=== PATIENT | female | born 1970 | race Caucasian/White ===

== ENCOUNTER 2018-05-21 17:18 | Emergency (ER) | payer SELFPAY ==
[~2018-05-21] VITALS: Ht 162.6 cm; Wt 68.5 kg
[~2018-05-21 17:18] MED LIST: ENAL5TAB7 PO
[2018-05-21 17:44] VITALS: BP 166/106
--- NOTE | 2018-05-21 17:51 | NUR ---
BACK TO ER LOBBY WITH ---CONTINUE TO WAIT FOR AVAILABLE ROOM FOR MD MARQUEZ
--- NOTE | 2018-05-21 17:53 | NUR ---
URINE CUP HANDED TO PT FOR SAMPLE
--- NOTE | 2018-05-21 19:08 | NUR ---
PT TO ER BED 10
--- NOTE | 2018-05-21 19:13 | NUR ---
47 Y FEMALE ACCOMPANIED BY C/O ABDOMINAL PAIN , N/V X 2 WKS--- MIGRAINE TODAY. PAIN 10/. LAST BM YESTERDAY AFTERNOON, WITH STRAINING. ABDOMEN IS SOFT AND ROUND. BOWEL SOUNDS ACTIVE IN ALL 4 QUADRANTS. --SEEN AND DC TODAY [facility] , CT SCAN COMPLETED DX CONSTIPATION, ANEMIA RX IRON , MIRALAX----HAVE NOT YET FILLED RX. PT STATES THE PAIN HAS WORSENED. VSS AT THIS TIME. AA0X4. BED IS DOWN, LOCKED, BED RAIL X 1, ERMD NOTIFIED. HX---HTN, CONSTIPATION, MIGRAINE RX---LISINOPRIL 10MG
--- NOTE | 2018-05-21 19:31 | NUR ---
VSS AT THIS TIME. AA0X4. PT SITTING IN BED
[2018-05-21] MEDS ORDERED: SODIUM PHOSPHATE 118 ML ENEM RC ONE (20:10)
[2018-05-21] MEDS ORDERED: KETOROLAC 30 MG/ML VIAL IVP ONE (20:10)
[2018-05-21] MEDS ORDERED: ONDANSETRON 4 MG/2 ML VIAL IVP ONE (20:10)
[2018-05-21] MEDS ORDERED: LACTULOSE 20 GM/30 ML UDC PO ONE (21:05)
[2018-05-21 21:15] VITALS: BP 168/88
--- NOTE | 2018-05-21 21:15 | NUR ---
Patient discharged with v/s stable. Written and verbal after care instructions given and explained. Patient verbalized understanding. Ambulatory with steady gait. All questions addressed prior to discharge. Advised to follow up with PMD.
== END 2018-05-21 21:15 | disposition home or self-care (01) ==
LOC: MED 17:18
DX: K59.00 Constipation, unspecified (principal); I10 Essential (primary) hypertension; G43.909 Migraine, unspecified, not intractable, without status migrainosus; Z79.899 Other long term (current) drug therapy
CPT/HCPCS: 81002; 81025; 96374; 96375; 99283; J1885; J2405

== ENCOUNTER 2018-10-22 18:23 | Emergency (ER) | payer OTHER ==
[~2018-10-22] VITALS: Ht 162.6 cm; Wt 68.0 kg
--- NOTE | 2018-10-22 18:25 | NUR ---
PATIENT BIBA AND TAKEN TO ER BED 4
[2018-10-22 18:30] VITALS: BP 159/80
--- NOTE | 2018-10-22 19:10 | NUR ---
PT WENT TO RESTROOM. PROVIDED THE URINE CUP FOR COLLECTING THE SAMPLE.
[2018-10-22] MEDS ORDERED: ALBUTEROL SULFATE/IPRATROPIU 3 ML SOL IH ONE (19:30)
[2018-10-22] MEDS ORDERED: methylPREDNISolone SS 125 MG/2 ML VIAL IM ONE (19:30)
--- NOTE | 2018-10-22 19:57 | NUR ---
PT BIBA WITH C/O SOB SINCE LAST TWO DAYS. HAS DIFFICULTY IN SWALLOWING AND STATES TO HAVE SORE THROAT. PAIN 8/10 AT THROAT. DENIES N, V, D. HAD FEVER IN AM, TOOK TYELENOL. O2 SAT 100% ON RA. SLIGHT TENDERNESS TO LYMPHNODES AT THE BOTH SIDE OF THE THROAT. NO REDNES OR SWELLING SEEN AT INNER THROAT REGION. PT STATES DIFFICULTY WHILE SWALLOWING. WILL CONTINUE TO MONITOR PT. HX--HTN MEDS-- ENALAPRIL
[2018-10-22 20:13] LABS: BASOPHILS # (AUTO) 0.1 K/uL (0.00-0.22); BASOPHILS % (AUTO) 0.5 % (0.0-2.0); EOSINOPHILS # (AUTO) 0.3 K/uL (0-0.4); EOSINOPHILS % (AUTO) 2.8 % (0.0-4.0); HEMATOCRIT 29.6 % (36-48); HEMOGLOBIN 8.9 g/dL (12.0-16.0); LYMPHOCYTES # (AUTO) 1.6 K/uL (2.5-16.5); LYMPHOCYTES % (AUTO) 17.4 % (20.5-51.1); MEAN CORPUSCULAR HEMOGLOBIN 19 pg (27-31); MEAN CORPUSCULAR HGB CONC 30 g/dL (33-37); MEAN CORPUSCULAR VOLUME 62.1 fL (80-94); MONOCYTES # (AUTO) 0.9 K/uL (0.8-1.0); MONOCYTES % (AUTO) 9.4 % (1.7-9.3); NEUTROPHILS # (AUTO) 6.6 K/uL (1.8-7.7); NEUTROPHILS % (AUTO) 69.9 % (42.2-75.2); PLATELET COUNT (AUTO) 303 K/uL (140-450); RED BLOOD CELL COUNT(AUTO) 4.77 MIL/uL (4.20-5.40); RED CELL DISTRIBUTION WIDTH 20.2 % (11.6-13.7); WHITE BLOOD COUNT (AUTO) 9.4 K/uL (4.8-10.8)
[2018-10-22 20:28] LABS: ANION GAP 10.4 (8-16); CREATININE 0.5 mg/dL (0.6-1.3); POTASSIUM 3.4 mmol/L (3.5-5.1)
[2018-10-22 20:36] LABS: ALBUMIN 3.8 g/dL (3.4-5.0); TOTAL BILIRUBIN 0.2 mg/dL (0.0-1.0)
[2018-10-22] MEDS ORDERED: AZITHROMYCIN 250 MG TAB PO ONE (20:50)
[2018-10-22 21:09] VITALS: BP 150/89
--- NOTE | 2018-10-22 21:10 | NUR ---
Patient discharged with v/s stable. Written and verbal after care instructions given and explained. Patient alert, oriented and verbalized understanding of instructions. Ambulatory with steady gait. All questions addressed prior to discharge. ID band removed. Patient advised to follow up with PMD. Rx of PREDNISONE 20 MG, AZITHROMYCIN 250 MG, TESSALON PERLES given. Patient educated on indication of medication including possible reaction and side effects. Opportunity to ask questions provided and answered.
== END 2018-10-22 21:10 | disposition other institution (70) ==
LOC: MED 18:23
DX: J02.8 Acute pharyngitis due to other specified organisms (principal); B97.89 Other viral agents as the cause of diseases classified elsewhere; R06.02 Shortness of breath; R59.0 Localized enlarged lymph nodes; I10 Essential (primary) hypertension; Z79.899 Other long term (current) drug therapy; Z88.0 Allergy status to penicillin
CPT/HCPCS: 36415; 71045; 80053; 85025; 87081; 94640; 96372; 99284; J2930; J7620; Q0092

== ENCOUNTER 2021-08-24 23:11 | Emergency (ER) | payer SELFPAY ==
[~2021-08-24] VITALS: Ht 157.5 cm; Wt 73.5 kg
[~2021-08-24 23:11] MED LIST changes: -ENAL5TAB7 PO; +[UNRECOGNIZED DRUG - CODE] PO
[2021-08-24 23:42] VITALS: BP 203/113
--- NOTE | 2021-08-25 01:01 | NUR ---
Patient ambulated to bed 2.
[2021-08-25] MEDS ORDERED: diazePAM 5 MG TAB PO ONE (01:10)
[2021-08-25] MEDS ORDERED: KETOROLAC 30 MG/ML VIAL IM ONE (01:10)
--- NOTE | 2021-08-25 01:21 | NUR ---
XRAY AT BEDSIDE
--- NOTE | 2021-08-25 01:58 | NUR ---
50 Y/O FEMALE BIBS FROM HOME, C/O left shoulder and arm pain x 2 weeks. Patient reported, had left shoulder and left arm pain for 2 weeks, after pulled fridge. NO DEFORMITIES OR OBVIOUS TRAUMA. CMS INTACT. LIMITED ROM DUE TO PAIN. PMHx: HTN ALL: PCN
[2021-08-25] MEDS ORDERED: CYCL-711 PO (02:49)
[2021-08-25] MEDS ORDERED: NAPR-54 PO (02:49)
[2021-08-25 03:15] VITALS: BP 160/100
--- NOTE | 2021-08-25 03:16 | NUR ---
Patient discharged with v/s stable. Written and verbal after care instructions given and explained. Patient alert, oriented and verbalized understanding of instructions. Ambulatory with steady gait. All questions addressed prior to discharge. ID band removed. Patient advised to follow up with PMD. Rx of FLEXERIL AND NAPROSYN given. Patient educated on indication of medication including possible reaction and side effects. Opportunity to ask questions provided and answered. VSS, A/OX4, AMBULATORY, UNLABORED BREATHING, AND CALM DEMEANOR.
[2021-08-25] MEDS ORDERED: TRAM50TA3 PO (21:23)
== END 2021-08-25 03:16 | disposition home or self-care (01) ==
LOC: MED 23:11
DX: M25.512 Pain in left shoulder (principal); M75.32 Calcific tendinitis of left shoulder; I10 Essential (primary) hypertension; Z79.899 Other long term (current) drug therapy; Z88.0 Allergy status to penicillin; Z90.49 Acquired absence of other specified parts of digestive tract
CPT/HCPCS: 73030; 96372; 99283; J1885; Q0092

== ENCOUNTER 2021-08-25 17:38 | Emergency (ER) | payer SELFPAY ==
[~2021-08-25] VITALS: Ht 156.2 cm; Wt 74.1 kg
[~2021-08-25 17:38] MED LIST changes: +CYCL-711 PO; +NAPR-54 PO
[2021-08-25 18:13] VITALS: BP 223/131
[2021-08-25] MEDS ORDERED: CLONIDINE HYDROCHLORIDE 0.1 MG TAB PO ONE (19:00)
[2021-08-25] MEDS ORDERED: MORPHINE SULFATE 4 MG/ML SYR IM ONE (19:00)
[2021-08-25 19:48] LABS: HEMATOCRIT 43.2 % (36-48); HEMOGLOBIN 14.5 g/dL (12.0-16.0); MEAN CORPUSCULAR HEMOGLOBIN 29 pg (27-31); MEAN CORPUSCULAR VOLUME 84.8 fL (80-94); RED BLOOD CELL COUNT(AUTO) 5.09 MIL/uL (4.20-5.40); WHITE BLOOD COUNT (AUTO) 8.8 K/uL (4.8-10.8)
[2021-08-25 19:49] LABS: BASOPHILS % (AUTO) 0.7 % (0.0-2.0); EOSINOPHILS % (AUTO) 1.5 % (0.0-4.0); LYMPHOCYTES % (AUTO) 28.7 % (20.5-51.1); MEAN CORPUSCULAR HGB CONC 34 g/dL (33-37); MONOCYTES % (AUTO) 9.5 % (1.7-9.3); NEUTROPHILS % (AUTO) 59.6 % (42.2-75.2); PLATELET COUNT (AUTO) 201 K/uL (140-450); RED CELL DISTRIBUTION WIDTH 14.7 % (11.6-13.7)
[2021-08-25 19:50] LABS: BASOPHILS # (AUTO) 0.1 K/uL (0.00-0.22); EOSINOPHILS # (AUTO) 0.1 K/uL (0-0.4); LYMPHOCYTES # (AUTO) 2.5 K/uL (2.5-16.5); MONOCYTES # (AUTO) 0.8 K/uL (0.8-1.0); NEUTROPHILS # (AUTO) 5.3 K/uL (1.8-7.7)
[2021-08-25 20:07] LABS: CHLORIDE 103 mmol/L (98-107); POTASSIUM 3.8 mmol/L (3.5-5.1); SODIUM SERUM 141 mmol/L (136-145)
[2021-08-25 20:08] LABS: ANION GAP 13.6 (8-16); CARBON DIOXIDE 28.2 mmol/L (21-32); CREATININE 0.5 mg/dL (0.6-1.3); GFR ARICAN-AMERICAN 167 mL/min (>90); GLUCOSE 108 mg/dL (74-106); TOTAL BILIRUBIN 0.3 mg/dL (0.0-1.0); UREA NITROGEN, BLOOD 9 mg/dL (7-18)
[2021-08-25 20:09] LABS: ALBUMIN 4.1 g/dL (3.4-5.0); ASPARTATE AMINOTRANSFERASE 85 U/L (15-37)
[2021-08-25] MEDS ORDERED: TRAM50TA3 PO (21:23)
[2021-08-25 22:12] VITALS: BP 159/108
== END 2021-08-25 22:12 | disposition home or self-care (01) ==
LOC: MED 17:38
DX: M25.512 Pain in left shoulder (principal); M65.242 Calcific tendinitis, left hand; R60.9 Edema, unspecified; I10 Essential (primary) hypertension; Z88.0 Allergy status to penicillin; Z79.899 Other long term (current) drug therapy
CPT/HCPCS: 36415; 71045; 80053; 83605; 84484; 85025; 85651; 86140; 93005; 93971; 96372; 99285; Q0092; J2270

== ENCOUNTER 2021-10-14 19:30 | Emergency (ER) | payer SELFPAY ==
[~2021-10-14 19:30] MED LIST changes: +TRAM50TA3 PO
--- NOTE | 2021-10-14 19:49 | NUR ---
CALLED PT IN LOBBY AND OUTSIDE FOR TRIAGE. NO ANSWER.
--- NOTE | 2021-10-14 19:55 | NUR ---
CALLED PT IN LOBBY AND OUTSIDE FOR TRIAGE. NO ANSWER.
--- NOTE | 2021-10-14 20:00 | NUR ---
CALLED PT IN LOBBY AND OUTSIDE FOR TRIAGE. NO ANSWER.
--- NOTE | 2021-10-14 20:00 | NUR ---
CALLED NUMBER ON FILE SPOKE TO . STATES HE WILL CALL AND SEE IF PT IS STILL HERE AND WOULD LIKE TO BE SEEN
--- NOTE | 2021-10-14 20:15 | NUR ---
NO CALL BACK FROM OR PT. PT DID NOT PRESENT SELF TO FRONT. CALLED TO FOR TRIAGE AGAIN, NO ANSWER.
[2021-10-15] MEDS ORDERED: TRAM50TA3 PO (07:18)
== END 2021-10-14 20:16 | disposition left against medical advice (07) ==
LOC: MED 19:30
DX: R53.1 Weakness (principal); Z53.21 Procedure and treatment not carried out due to patient leaving prior to being seen by health care provider

== ENCOUNTER 2021-10-15 06:53 | Emergency (ER) | payer SELFPAY ==
[~2021-10-15] VITALS: Ht 160 cm; Wt 70.3 kg
[2021-10-15 07:07] VITALS: BP 183/104
--- NOTE | 2021-10-15 07:10 | NUR ---
ermd in triage examining pt.
[2021-10-15] MEDS ORDERED: TRAM50TA3 PO (07:18)
[2021-10-15] MEDS: HYDROcodone/APAP 5/325 MG 1 TAB TAB PO ONE (07:31)
--- NOTE | 2021-10-15 07:49 | NUR ---
shoulder sling applied to l shoulder. + cms
--- NOTE | 2021-10-15 08:05 | NUR ---
ATTEMPTED TO D/C PATIENT. RETOOK BP 198/[address] FIERRO MADE AWARE.
[2021-10-15] MEDS: MORPHINE SULFATE 4 MG/ML SYR IM ONE (08:19)
--- NOTE | 2021-10-15 08:46 | NUR ---
RETOOK PT BP, 174/116, DR FIERRO MADE AWARE, STATED THAT PT OK TO DC WITH BLOOD PRESSURE
[2021-10-15 08:47] VITALS: BP 174/116
== END 2021-10-15 08:46 | disposition home or self-care (01) ==
LOC: MED 06:53
DX: M75.31 Calcific tendinitis of right shoulder (principal); I10 Essential (primary) hypertension; Z88.0 Allergy status to penicillin
CPT/HCPCS: 96372; 99283; J2270

== ENCOUNTER 2023-05-28 06:04 | Emergency (ER) | payer OTHER ==
[~2023-05-28] VITALS: Ht 157.5 cm; Wt 72.6 kg
[~2023-05-28 06:04] MED LIST changes: +NAPR-337 PO; -NAPR-54 PO
[2023-05-28 06:11] VITALS: BP 186/117; PULSE 76; RESP 18; TEMP 97.3; O2SAT 97
[2023-05-28 06:40] LABS: BASOPHILS % (AUTO) 0.7 % (0.0-2.0); EOSINOPHILS # (AUTO) 0.2 K/uL (0-0.4); EOSINOPHILS % (AUTO) 3.9 % (0.0-4.0); HEMATOCRIT 42.6 % (36-48); HEMOGLOBIN 14.5 g/dL (12.0-16.0); LYMPHOCYTES # (AUTO) 2.2 K/uL (2.5-16.5); LYMPHOCYTES % (AUTO) 38.2 % (20.5-51.1); MEAN CORPUSCULAR HEMOGLOBIN 30 pg (27-31); MEAN CORPUSCULAR HGB CONC 34 g/dL (33-37); MEAN CORPUSCULAR VOLUME 87.8 fL (80-94); MONOCYTES # (AUTO) 0.6 K/uL (0.8-1.0); MONOCYTES % (AUTO) 10.3 % (1.7-9.3); NEUTROPHILS # (AUTO) 2.8 K/uL (1.8-7.7); NEUTROPHILS % (AUTO) 46.9 % (42.2-75.2); PLATELET COUNT (AUTO) 182 K/uL (140-450); RED BLOOD CELL COUNT(AUTO) 4.85 MIL/uL (4.20-5.40); RED CELL DISTRIBUTION WIDTH 13.3 % (11.6-13.7); WHITE BLOOD COUNT (AUTO) 5.9 K/uL (4.8-10.8)
[2023-05-28 06:59] LABS: BILIRUBIN,URINE NEGATIVE (NEGATIVE); BLOOD, URINE 1+ (NEGATIVE); COLOR,URINE YELLOW (YELLOW); LEUKOCYTE ESTERASE ,URINE 1+ (NEGATIVE); NITRITE, URINE NEGATIVE (NEGATIVE); PROTEIN,URINE NEGATIVE (NEGATIVE); UGLUCOSE NEGATIVE (NEGATIVE); UROBILINOGEN,URINE 0.2 EU/dL (0.2 - 1)
[2023-05-28 07:27] LABS: APPEARANCE,URINE CLEAR (CLEAR); BACTERIA,URINE OCCASSIONAL /HPF (None Seen); MUCUS,URINE 1+ /LPF (None Seen); RBC,URINE 0-5 /HPF (0-5); SQUAMOUS EPITHELIAL CELL,UR 0-3 (FEW) /LPF (0-3 (FEW)); WBC,URINE 0-5 /HPF (0-5)
[2023-05-28 08:09] LABS: ALANINE AMINOTRANSFERASE 31 U/L (12-78); ALBUMIN 3.7 g/dL (3.4-5.0); ALKALINE PHOSPHATASE 67 U/L (50-136); ANION GAP 12.8 (8-16); ASPARTATE AMINOTRANSFERASE 20 U/L (15-37); CALCIUM 8.9 mg/dL (8.5-10.1); CARBON DIOXIDE 28.2 mmol/L (21-32); CHLORIDE 105 mmol/L (98-107); CREATININE 0.5 mg/dL (0.6-1.3); GFR ARICAN-AMERICAN 166 mL/min (>90); GFR NON ARICAN-AMERICAN 137 mL/min (>90); GLUCOSE 118 mg/dL (74-106); LIPASE 35 U/L (16-77); SODIUM SERUM 142 mmol/L (136-145); TOTAL BILIRUBIN 0.4 mg/dL (0.0-1.0); TOTAL PROTEIN, SERUM 7.1 g/dL (6.4-8.2); UREA NITROGEN, BLOOD 9 mg/dL (7-18)
[2023-05-28] MEDS ORDERED: VIB100 PO (09:12)
[2023-05-28 09:24] VITALS: BP 142/88; PULSE 63; RESP 16; O2SAT 98
== END 2023-05-28 09:24 | disposition home or self-care (01) ==
LOC: MED 06:04
DX: N39.0 Urinary tract infection, site not specified (principal); I10 Essential (primary) hypertension; Z79.899 Other long term (current) drug therapy
CPT/HCPCS: 36415; 71045; 74177; 80053; 81001; 83690; 84484; 85025; 87086; 93005; 99285; Q0092; Q9967

== ENCOUNTER 2023-06-12 08:42 | Emergency (ER) | payer OTHER ==
[~2023-06-12] VITALS: Ht 162.6 cm; Wt 81.6 kg
[~2023-06-12 08:42] MED LIST changes: +VIB100 PO
[2023-06-12 09:05] VITALS: BP 180/103; PULSE 75; RESP 14; TEMP 98.1; O2SAT 98
[2023-06-12] MEDS: LABETALOL 20 MG/4 ML VIAL IVP ONE (09:34)
[2023-06-12 10:03] LABS: BILIRUBIN,URINE NEGATIVE (NEGATIVE); BLOOD, URINE 1+ (NEGATIVE); COLOR,URINE YELLOW (YELLOW); LEUKOCYTE ESTERASE ,URINE 1+ (NEGATIVE); NITRITE, URINE NEGATIVE (NEGATIVE); PH,URINE 6.5 (5.0-9.0); PROTEIN,URINE NEGATIVE (NEGATIVE); UGLUCOSE NEGATIVE (NEGATIVE); UROBILINOGEN,URINE 0.2 EU/dL (0.2 - 1)
[2023-06-12 10:04] LABS: BASOPHILS % (AUTO) 0.6 % (0.0-2.0); EOSINOPHILS # (AUTO) 0.2 K/uL (0-0.4); EOSINOPHILS % (AUTO) 2.8 % (0.0-4.0); HEMATOCRIT 42.7 % (36-48); HEMOGLOBIN 14.8 g/dL (12.0-16.0); MEAN CORPUSCULAR HEMOGLOBIN 30 pg (27-31); MEAN CORPUSCULAR HGB CONC 35 g/dL (33-37); MEAN CORPUSCULAR VOLUME 87.8 fL (80-94); MONOCYTES # (AUTO) 0.5 K/uL (0.8-1.0); MONOCYTES % (AUTO) 7.7 % (1.7-9.3); NEUTROPHILS # (AUTO) 3.3 K/uL (1.8-7.7); NEUTROPHILS % (AUTO) 54.9 % (42.2-75.2); PLATELET COUNT (AUTO) 190 K/uL (140-450); RED BLOOD CELL COUNT(AUTO) 4.86 MIL/uL (4.20-5.40); RED CELL DISTRIBUTION WIDTH 13.4 % (11.6-13.7)
[2023-06-12 10:10] LABS: ALBUMIN 4.1 g/dL (3.4-5.0); ANION GAP 14.4 (8-16); CALCIUM 9.1 mg/dL (8.5-10.1); CARBON DIOXIDE 26.5 mmol/L (21-32); CREATININE 0.4 mg/dL (0.6-1.3); POTASSIUM 3.9 mmol/L (3.5-5.1); TOTAL BILIRUBIN 0.4 mg/dL (0.0-1.0); TOTAL PROTEIN, SERUM 7.7 g/dL (6.4-8.2)
[2023-06-12 10:43] LABS: APPEARANCE,URINE CLEAR (CLEAR); BACTERIA,URINE FEW /HPF (None Seen); RBC,URINE 0-5 /HPF (0-5); SQUAMOUS EPITHELIAL CELL,UR 0-3 (FEW) /LPF (0-3 (FEW)); WBC,URINE 0-5 /HPF (0-5)
[2023-06-12] MEDS: CLINDAMYCIN 600 MG/4 ML VIAL IV ONE (13:38)
[2023-06-12 16:57] VITALS: TEMP 98.2
[2023-06-12 18:24] VITALS: BP 154/98; PULSE 72; RESP 15; O2SAT 97
== END 2023-06-12 17:25 | disposition short-term general hospital (02) ==
LOC: MED 08:42
DX: H70.90 Unspecified mastoiditis, unspecified ear (principal); R20.2 Paresthesia of skin; R29.898 Other symptoms and signs involving the musculoskeletal system; R07.9 Chest pain, unspecified; Z20.822 Contact with and (suspected) exposure to COVID-19; I10 Essential (primary) hypertension; Z79.1 Long term (current) use of non-steroidal anti-inflammatories (NSAID); Z79.899 Other long term (current) drug therapy; Z88.0 Allergy status to penicillin
CPT/HCPCS: 36415; 70450; 71045; 71275; 74174; 80053; 81001; 83880; 84484; 85025; 85379; 87086; 87426; 93005; 96365; 96375; 99291; J3490; Q9967